=== PATIENT | female | born 1955 | race Caucasian/White ===

== ENCOUNTER → 2018-02-28 | Outpatient (CLI) | payer OTHER ==
[~2018-02-28] MED LIST: NIAC500C17 PO
--- NOTE | 2018-03-02 08:30 | RADIOLOGY IMAGING REPORT ---
FACILITY: [facility] PATIENT NAME: JOSE LEAL : [id number] MR: [id number] V: [id number] EXAM DATE: [id number] ORDERING PHYSICIAN: COLE GARCIA TECHNOLOGIST: Hafsa Kim PROCEDURE:BILATERAL DIGITAL SCREENING MAMMOGRAM WITH CAD ASSISTED INTERPRETATION & 3D TOMOSYNTHESIS COMPARISON:Prior mammograms dated 02/03/17, 12/22/15, 04/17/14, 04/11/14, 01/17/13, 11/05/11 INDICATIONS:SCREENING FINDINGS: The breasts are heterogeneously dense which can obscure small masses. The parenchymal pattern has remained stable allowing for difference in mammographic technique & patient positioning. DIAGNOSTIC CATEGORY 1--NEGATIVE. RECOMMENDATIONS: ROUTINE MAMMOGRAM AND CLINICAL EVALUATION. IMPRESSION: BIRADS 1: Negative. No significant abnormality is seen. Dictated by: Evelin Goldsmith M.D. on 02/28/2018 at 17:06 Transcribed by: GILBERT on 03/01/2018 at 13:43 Approved by: Evelin Goldsmith M.D. on 03/02/2018 at 8:29 [facility]
== END ==
LOC: MAMO 01:25
PROVIDERS: ATTEND Nurse Practitioner Family
DX: Z12.31 Encounter for screening mammogram for malignant neoplasm of breast (principal)
CPT/HCPCS: 77063; 77067